=== PATIENT | male | born 1965 | race Caucasian/White ===

== ENCOUNTER 2017-03-24 13:15 | Emergency (ER) | payer OTHER ==
[~2017-03-24] VITALS: Ht 167.6 cm; Wt 83.0 kg
--- NOTE | ~2017-03-24 | EKG ---
PATIENT: DECLAN SMITH UNIT #: [id number] Ventricular Rate: 72 BPM Atrial Rate: 72 BPM P-R Interval: 144 ms QRS Duration: 86 ms Q-T Interval: 392 ms QTC Calculation(Bezet): 429 ms P Oxford: -11 degrees Calculated R [place]: -20 degrees Calculated T [place]: 12 degrees Diagnosis Line: Normal sinus rhythm Diagnosis Line: Normal ECG Diagnosis Line: No previous ECGs available Diagnosis Line: Confirmed by ANDER HUTCHINSON MD ([id number]) on 03/24/2017 Diagnosis Line: 6:06:10 PM INTERPRETING MD: JASPER ALCALA
--- NOTE | ~2017-03-24 | CR72 ---
[facility] A Service of [facility] RADIOLOGY TEXT RESULTS PATIENT: DECLAN SMITH LOCATION: [facility] : 61 UNIT #: [id number] AGE: [address]: Ciro Francis MD SEX: M ORDER DR: [id number] [facility] [address] [place], [place] [address] [id number] MR#: [id number] #: [id number] NAME: DECLAN SMITH : 1965 SEX: M STUDY DATE/TIME: 03/24/2017 16:00 UNIT: [facility] ROOM: STUDY DESCRIPTION: CR Chest Single View Portable Attending Physician: Ciro Francis M.D. Ordering Physician: Ciro Francis M.D. Primary Care Physician: Primary Care Physician No MEDICAL IMAGING REPORT This report is preliminary unless electronic signature is present EXAM AP portable chest date 03/24/2017 HISTORY Left side chest pain and shortness of breath for 2 days. COMPARISON AP portable chest 09/22/2010 FINDINGS A single AP portable view of the chest shows both lungs to be clear. The heart is normal in size. The mediastinal contour is normal. No significant bone abnormalities are seen. IMPRESSION Normal AP portable chest. Dictated by... Theresa Pereira M.D. THIS IS AN ELECTRONICALLY VERIFIED REPORT Theresa Pereira M.D. at 03/25/2017 9:55 AM [facility]/vasquez TD: 03/24/2017 18:25 JOB #: [id number] MEDICAL IMAGING REPORT Page 1 of 1 COPY
[~2017-03-24 13:15] MED LIST: DIAZEPAM PO; ENDOCET
[2017-03-24 15:29] LABS: BASOPHIL% 0.5 % (0-2.5); EOSINOPHIL# 0.1 X10e3 (0-0.7); EOSINOPHIL% 1.3 % (0.0-7.0); HEMATOCRIT 40.5 % (38.0-50.0); HEMOGLOBIN 13.8 gm/dL (13.0-16.0); LYMPHOCYTE# 1.7 X10e3 (1.0-3.5); LYMPHOCYTE% 20.1 % (17.0-45.0); MEAN CELL VOLUME 87.8 FL (83-96); MEAN CORPUSCULAR HEMOGLOBIN 29.9 PG (28-34); MEAN PLATELET VOLUME 7.3 FL (6.5-11.5); MONOCYTE# 0.6 X10e3 (0-1.0); MONOCYTE% 7.1 % (3.0-12.0); NEUTROPHIL# 6.1 X10e3 (1.5-7.1); PLATELET COUNT 227 X10e3 (140-420); RED BLOOD COUNT 4.61 X10e (3.90-5.60); RED CELL DISTRIBUTION WIDTH 14.4 % (11.0-15.5); WHITE BLOOD COUNT 8.5 X10e3 (4.0-10.5)
[2017-03-24 15:30] LABS: DIFF IND NO
[2017-03-24 15:40] LABS: POC - CKMB <1.0 ng/mL (0.0-7.9); POC - TROPONIN <0.05 ng/mL (<=0.05)
[2017-03-24 15:58] LABS: ALBUMIN SERUM 4.2 g/dL (3.5-5.0); ALKALINE PHOSPHATASE 62 U/L (32-92); ALT (SGPT) 13 U/L (10-40); AST (SGOT) 18 U/L (10-42); BILIRUBIN,TOTAL 0.4 mg/dL (0.2-2.0); BLOOD UREA NITROGEN 13 mg/dL (9-23); BUN/CREATININE RATIO 18.57; CALCIUM SERUM 8.9 mg/dL (8.4-10.2); CARBON DIOXIDE 28 mmol/L (22-31); CHLORIDE 109 mmol/L (100-111); CREATININE SERUM 0.7 mg/dL (0.6-1.4); GLOM FILT RATE Estimated 107.8 mL/min (>60); GLUCOSE FASTING 120 mg/dL (70-110); POTASSIUM 3.8 mmol/L (3.5-5.1); SODIUM 144 mmol/L (135-145)
[2017-03-24 16:11] LABS: BILIRUBIN, DIRECT <0.1 mg/dL (0.0-0.2); BILIRUBIN,INDIRECT 0.3 mg/dL (0.0-0.9)
== END 2017-03-24 16:32 | disposition home or self-care (01) ==
LOC: CED 13:15
DX: R07.89 Other chest pain (principal); M54.10 Radiculopathy, site unspecified; F17.200 Nicotine dependence, unspecified, uncomplicated
CPT/HCPCS: 71010; 80048; 80076; 82553; 84484; 85025; 93005; 99285